=== PATIENT | female | born 1935 | race Caucasian/White ===

== ENCOUNTER 2023-04-29 21:51 | Inpatient (IN) | payer MEDICARE ==
[2023-04-29 22:20] LABS: BASOPHILS ABSOLUTE AUTO 0.03 K/uL (0.00-0.10); BASOPHILS PERCENT AUTO 0.5 % (0.1-1.3); EOSINOPHILS ABSOLUTE AUTO 0.58 K/uL (0.00-0.40); EOSINOPHILS PERCENT AUTO 10.6 % (0.0-5.4); HEMATOCRIT 35.7 % (34.3-46.0); HEMOGLOBIN 11.8 g/dL (11.2-15.5); IMMATURE GRAN PERCENT AUTO 0.4 % (0.0-0.7); LYMPHOCYTES ABSOLUTE AUTO 1.12 K/uL (0.8-3.3); LYMPHOCYTES PERCENT AUTO 20.5 % (11.4-47.7); MEAN CORPUSCULAR HEMOGLOBIN 30.6 pg (31.6-35.5); MEAN CORPUSCULAR HGB CONC 33.1 g/dL (31.6-35.5); MEAN CORPUSCULAR VOLUME 92.7 fL (81.4-99.0); MONOCYTES ABSOLUTE AUTO 0.59 K/uL (0.20-0.90); MONOCYTES PERCENT AUTO 10.8 % (3.3-12.6); NEUTROPHILS ABSOLUTE AUTO 3.12 K/uL (1.0-7.6); NEUTROPHILS PERCENT AUTO 57.2 % (40.0-78.1); PLATELET COUNT,PLT 249 K/uL (130-375); RED BLOOD CELL COUNT 3.85 M/uL (3.77-5.24); WHITE BLOOD CELL COUNT,WBC 5.5 K/uL (3.2-11.0)
[2023-04-29 22:23] LABS: IMMATURE GRAN ABSOLUTE AUTO 0.02 K/uL (0.00-0.23)
[2023-04-29 22:43] LABS: A/G RATIO 0.6 (1.2-2.2); ALANINE AMINOTRANSFERASE,ALT 24 U/L (12-78); ALBUMIN 2.7 g/dL (3.4-5.0); ALKALINE PHOSPHATASE 92 U/L (46-116); ASPARTATE AMNIOTRANSFERASE,AST 29 U/L (15-37); BILIRUBIN TOTAL 0.3 mg/dL (0.2-1.0); BLOOD UREA NITROGEN,BUN 16 mg/dL (7-18); CALCIUM 8.7 mg/dL (8.5-10.1); CARBON DIOXIDE,CO2 27 mmol/L (21-32); CHLORIDE,CL 102 mmol/L (100-108); ESTIMATED GFR 55 mL/min (>60); GLUCOSE RANDOM 115 mg/dL (74-106); POTASSIUM,K 3.6 mmol/L (3.6-5.2); PROTEIN TOTAL,TP 7.2 g/dL (6.4-8.2); SODIUM,NA 138 mmol/L (140-148); TROPONIN I HIGH SENSITIVITY 13.3 pg/mL (<=60.3)
[2023-04-29 22:54] LABS: ANION GAP 12.6 mmol/L (5.0-14.0)
[2023-04-29 23:28] LABS: CORONAVIRUS COVID-19 NAA NEGATIVE (NEGATIVE); INFLUENZA A NAA NEGATIVE (NEGATIVE); INFLUENZA B NAA NEGATIVE (NEGATIVE); RESPIRATORY SYNCYTIAL VIR NAA NEGATIVE (NEGATIVE)
[2023-04-29 23:36] LABS: APPEARANCE,URINE CLEAR (CLEAR); BILIRUBIN,URINE NEGATIVE (NEGATIVE); COLOR,URINE YELLOW (YELLOW); GLUCOSE,URINE NEGATIVE (NEGATIVE); KETONES,URINE NEGATIVE (NEGATIVE); LEUKOCYTE ESTERASE,URINE NEGATIVE (NEGATIVE); NITRITE,URINE NEGATIVE (NEGATIVE); OCCULT BLOOD,URINE NEGATIVE (NEGATIVE); PROTEIN,URINE NEGATIVE (NEGATIVE); UROBILINOGEN,URINE 0.2 EU/dL (0.2-1.0)
[2023-04-29 23:56] LABS: AMORPHOUS SEDIMENT,URINE NOT SEEN; BACTERIA,URINE RARE; EPITHELIAL CELLS,URINE RARE; MUCUS,URINE NOT SEEN; RBC,URINE 0-5 (0-5); WBC,URINE 0-5 (0-5)
[2023-04-30] MEDS: atorvaSTATin 20 MG Tab PO ONE (00:59)
[2023-04-30] MEDS: Azithromycin 500 MG in Sodium Chloride 0.9% 250 ML IV SCH (01:22)
[2023-04-30] MEDS: cefTRIAXone 1 GM in Sodium Chloride 0.9% 50 ML IV SCH (02:24)
[2023-04-30] MEDS ORDERED: QUEtiapine 25 MG Tab PO SCH (09:00)
[2023-04-30] MEDS: amLODIPine 5 MG Tab PO SCH (09:05)
[2023-04-30] MEDS ORDERED: Haloperidol 1 MG Tab PO PRN (10:10)
[2023-04-30] MEDS: Haloperidol 1 MG Tab PO ONE (10:21)
[2023-04-30] MEDS: Iopamidol 755 Mg/ML 100 ML Bottle IV ONE (10:35)
[2023-04-30] MEDS: Sodium Chloride 0.9% 100 ML IV SCH (10:35)
[2023-04-30] MEDS: Potassium Chloride 20 MEQ Tab.ER PO ONE (10:46)
[2023-04-30] MEDS: Aspirin 81 MG Tab.Chew PO SCH (10:46)
[2023-04-30] MEDS: Enoxaparin 40 MG/0.4 ML Syringe SUBCUT SCH (10:50)
[2023-04-30] MEDS: Albuterol 0.083% 2.5 MG/3 ML Neb Soln NEB PRN (14:49)
[2023-04-30] MEDS: LORazepam 1 MG Tab PO ONE (14:49)
[2023-04-30] MEDS: QUEtiapine 25 MG Tab PO SCH (15:43)
[2023-04-30] MEDS ORDERED: LORazepam 2 MG/ML SDV IVPUSH ONE (18:02)
[2023-04-30] MEDS ORDERED: LORazepam 1 MG Tab PO PRN (18:03)
[2023-04-30] MEDS: Furosemide 20 MG/2 ML VIAL IVPUSH ONE (18:20)
[2023-04-30] MEDS: Melatonin 3 MG Tab PO SCH (20:13)
[2023-04-30] MEDS: atorvaSTATin 20 MG Tab PO SCH (20:14)
[2023-05-01 08:22] LABS: ANION GAP 6.5 mmol/L (5.0-14.0); CALCIUM 9.1 mg/dL (8.5-10.1); CREATININE 1.1 mg/dL (0.6-1.0); EST CRCL DRUG DOSING (CG) 26.37 mL/min; POTASSIUM,K 4.1 mmol/L (3.6-5.2)
[2023-05-01] MEDS: Potassium Chloride 20 MEQ Tab.ER PO ONE (09:06)
[2023-05-01] MEDS: Furosemide 40 MG/4 ML VIAL IVPUSH ONE (09:08)
[2023-05-01] MEDS ORDERED: Furosemide 40 MG/4 ML VIAL IVPUSH ONE (19:00)
[2023-05-01] MEDS: Furosemide 20 MG Tab PO ONE (19:24)
[2023-05-01] MEDS: Furosemide 20 MG/2 ML VIAL IVPUSH ONE (19:48)
[2023-05-01] MEDS: Azithromycin 250 MG Tab PO SCH (20:19)
[2023-05-01] MEDS: Cephalexin 250 MG Cap PO SCH (20:19)
[2023-05-02] MEDS: Enoxaparin 30 MG/0.3 ML Syringe SUBCUT SCH (08:25)
[2023-05-02] MEDS: Pneumococcal 20-Valent Conjug 0.5 ML Syringe IM ONE (08:26)
[2023-05-02] MEDS: Cefdinir 300 MG Cap PO SCH (20:44)
[2023-05-03 04:41] LABS: HEMATOCRIT 35.8 % (34.3-46.0); HEMOGLOBIN 11.6 g/dL (11.2-15.5); MEAN CORPUSCULAR HEMOGLOBIN 30.5 pg (31.6-35.5); MEAN CORPUSCULAR HGB CONC 32.4 g/dL (31.6-35.5); MEAN CORPUSCULAR VOLUME 94.2 fL (81.4-99.0); RED BLOOD CELL COUNT 3.8 M/uL (3.77-5.24)
[2023-05-03 05:02] LABS: ANION GAP 7.5 mmol/L (5.0-14.0); BLOOD UREA NITROGEN,BUN 37 mg/dL (7-18); CARBON DIOXIDE,CO2 30 mmol/L (21-32); CHLORIDE,CL 105 mmol/L (100-108); CREATININE 1.2 mg/dL (0.6-1.0); EST CRCL DRUG DOSING (CG) 24.17 mL/min; ESTIMATED GFR 44 mL/min (>60); GLUCOSE RANDOM 102 mg/dL (74-106); POTASSIUM,K 4.2 mmol/L (3.6-5.2); SODIUM,NA 142 mmol/L (140-148)
[2023-05-03 05:16] LABS: C-REACTIVE PROTEIN < 0.50 mg/dL (<0.50)
[2023-05-03] MEDS: Furosemide 20 MG Tab PO SCH (17:15)
[2023-05-04] MEDS: Furosemide 40 MG Tab PO ONE (14:47)
[2023-05-04] MEDS: Albuterol 0.083% 2.5 MG/3 ML Neb Soln NEB SCH (20:32)
[2023-05-05 05:35] LABS: ANION GAP 6.1 mmol/L (5.0-14.0); CALCIUM 9.5 mg/dL (8.5-10.1); CREATININE 1.4 mg/dL (0.6-1.0); EST CRCL DRUG DOSING (CG) 20.72 mL/min; POTASSIUM,K 3.8 mmol/L (3.6-5.2)
[2023-05-05] MEDS: Cefdinir 300 MG Cap PO SCH (09:36)
== END 2023-05-06 13:40 | disposition home health service (06) | DRG 193 ==
LOC: JP.ED 21:51 → JP.MS 23:54
PROVIDERS: ADMIT Family Medicine; ATTEND Internal Medicine
DX: J18.9 Pneumonia, unspecified organism (principal); J20.8 Acute bronchitis due to other specified organisms; J96.01 Acute respiratory failure with hypoxia; Z79.899 Other long term (current) drug therapy; F02.C18 Dementia in other diseases classified elsewhere, severe, with other behavioral disturbance; I11.0 Hypertensive heart disease with heart failure; I50.9 Heart failure, unspecified; H40.9 Unspecified glaucoma; F41.9 Anxiety disorder, unspecified; F32.A Depression, unspecified; G30.1 Alzheimer's disease with late onset; J45.40 Moderate persistent asthma, uncomplicated; E78.5 Hyperlipidemia, unspecified; M81.0 Age-related osteoporosis without current pathological fracture; Z86.73 Personal history of transient ischemic attack (TIA), and cerebral infarction without residual deficits; Z79.82 Long term (current) use of aspirin; Z98.51 Tubal ligation status
CPT/HCPCS: 0241U; 36415; 71045; 71275; 80048; 80053; 81001; 84145; 84484; 85025; 85027; 86140; 94640; 97161; 97530; 99284; 99285; 99233; 99239; A9270-GY; C1758; J0456; J0696; J1650; J1940; J3490; J7050; Q9967